=== PATIENT | male | born 1940 | race Caucasian/White ===

== ENCOUNTER 2020-10-28 17:00 | Observation (INO) | payer MEDICARE ==
[~2020-10-28] VITALS: Ht 177.8 cm; Wt 100.5 kg
[2020-10-28 06:00] VITALS: BP 144/80
[2020-10-28] MEDS ORDERED: ONDANSETRON ODT 4 MG PO PRN (18:30)
[2020-10-28] MEDS: HEPARIN 5,000 UNITS/ML, 1ML SQ SCH (18:30)
[2020-10-28] MEDS ORDERED: NITROGLYCERIN 0.4 MG BOTTLE (25 TABS) SL PRN (18:30)
[2020-10-28] MEDS ORDERED: ONDANSETRON 2MG/ML, 2ML IVPush PRN (18:30)
[2020-10-28] MEDS ORDERED: ACETAMINOPHEN 325 MG TABLET PO PRN (18:30)
[2020-10-28] MEDS ORDERED: SODIUM CHLORIDE 0.9% 1,000 ML IV SCH (18:30)
[2020-10-28] MEDS ORDERED: PLEASE ENTER HEIGHT AND WEIGHT MC SCH (19:00)
[2020-10-28] MEDS ORDERED: PLEASE ENTER ALLERGIES MC SCH (19:00)
[2020-10-28] MEDS ORDERED: MAALOX/HYOSCYAMINE/LIDOCAINE 45 ML BTL PO ONE (19:04)
[2020-10-28 20:01] LABS: ANION GAP 6 mmol/L (5-15); CALCIUM 8.6 mg/dL (8.5-10.1); CHLORIDE 112 mmol/L (98-107); CREATININE 1.16 mg/dL (0.7-1.3)
[2020-10-28 20:05] LABS: TROPONIN I < 0.015 ng/mL (0.000-0.045)
[2020-10-28 20:14] LABS: BASOPHILS % (AUTO) 1 % (0-1); EOSINOPHILS % (AUTO) 2 % (1-7); LYMPHOCYTES % (AUTO) 28 % (22-44); MEAN CORPUSCULAR HGB CONC 33.5 g/dL (33.2-36.2); MEAN PLATELET VOLUME 10.4 fL (7.4-10.4); MONOCYTES % (AUTO) 9 % (2-9); NEUTROPHILS % (AUTO) 60 % (42-75); PLATELET COUNT 171 x10^3/uL (130-400); RED BLOOD COUNT 4.95 x10^6/uL (4.38-5.82); RED CELL DISTRIBUTION WIDTH 13.9 % (9.4-14.8)
[2020-10-28 20:16] LABS: MD NO
[2020-10-28 20:30] VITALS: BP 129/74
[2020-10-28] MEDS ORDERED: ATORVASTATIN 40 MG TABLET PO SCH (21:00)
[2020-10-29 00:37] LABS: TROPONIN I < 0.015 ng/mL (0.000-0.045)
[2020-10-29 01:07] VITALS: BP_SYST 109; BP_SYST 123; BP_DIAS 69; BP_DIAS 72
[2020-10-29 05:22] LABS: BASOPHILS % (AUTO) 1 % (0-1); EOSINOPHILS % (AUTO) 4 % (1-7); LYMPHOCYTES % (AUTO) 28 % (22-44); MEAN CORPUSCULAR HEMOGLOBIN 34.3 pg (27.5-34.5); MEAN CORPUSCULAR HGB CONC 33.6 g/dL (33.2-36.2); MEAN PLATELET VOLUME 9.9 fL (7.4-10.4); MONOCYTES % (AUTO) 12 % (2-9); NEUTROPHILS % (AUTO) 55 % (42-75); PLATELET COUNT 147 x10^3/uL (130-400); RED BLOOD COUNT 4.57 x10^6/uL (4.38-5.82); RED CELL DISTRIBUTION WIDTH 13.7 % (9.4-14.8)
[2020-10-29 05:23] LABS: MD NO
[2020-10-29 05:31] LABS: ANION GAP 6 mmol/L (5-15); CALCIUM 8.5 mg/dL (8.5-10.1); CHLORIDE 113 mmol/L (98-107); CHOLESTEROL, TOTAL 163 mg/dL (140-239); TRIGLYCERIDES 144 mg/dL (50-200); VLDL CHOLESTEROL 29 mg/dL (0-25)
[2020-10-29 05:32] LABS: CHOL/HDL RATIO 4.9; HDL CHOL % 20 % (26-37); HDL CHOLESTEROL (DIRECT) 33 mg/dL (40-60); LDL CHOLESTEROL,CALCULATED 101 mg/dL (54-169); LDL/HDL RATIO 3.1 (0.5-3.0)
[2020-10-29 05:34] LABS: INTERNATIONAL NORMALIZED RATIO 1.02 (0.93-1.1); PROTHROMBIN TIME 10.9 Seconds (9.6-11.5)
[2020-10-29] MEDS: HEPARIN 5,000 UNITS/ML, 1ML SQ SCH ×2 (05:40→13:36)
[2020-10-29] MEDS ORDERED: ASPIRIN 325 MG TABLET PO SCH (06:00)
[2020-10-29 07:19] VITALS: BP 123/77
[2020-10-29] MEDS ORDERED: REGADENOSON 0.4 MG/5 ML SYRINGE ONE (09:12)
[2020-10-29] MEDS ORDERED: ACET325T26 PO (10:32)
== END 2020-10-29 14:10 | disposition home or self-care (01) ==
LOC: EDUNIT# 17:00 → 5SO 17:00 → EDBD 17:00 → DCLOUNGE 10-29 14:02
PROVIDERS: ADMIT Internal Medicine; ATTEND Internal Medicine
DX: R07.89 Other chest pain (principal); G47.30 Sleep apnea, unspecified; E66.9 Obesity, unspecified; Z79.899 Other long term (current) drug therapy; Z85.828 Personal history of other malignant neoplasm of skin
CPT/HCPCS: 36415; 71045; 78452; 80048; 80061; 84484; 85025; 85610; 93017; A9502; C9898; G0378; J1644; J2785; J7030